=== PATIENT | female | born 1960 | race Caucasian/White ===

== ENCOUNTER → 2020-01-02 | Outpatient (CLI) | payer OTHER ==
[~2020-01-02] MED LIST: CHOL200018 PO; CYAN50TA PO; GABA-486 PO; IODI150T PO; NFBIOT1000 PO; OLIV250C PO; OXYC-199 PO; SKINNY FIBER PO; ZINC50TA49 PO
--- NOTE | 2020-01-02 13:15 | Diagnostic Imaging Report ---
INDICATION: Routine screening. Comparison is made with prior mammogram from 06/05/2015. 2-D and 3-D bilateral screening mammography was performed. The current study was also evaluated with a Computer Aided Detection (CAD) system. 3-D tomosynthesis was also performed and reviewed. FINDINGS: Scattered fibroglandular densities are identified bilaterally. There is a questionable area of architectural distortion in the upper central left breast. Additional views are recommended. There are benign calcifications bilaterally. No malignant-appearing microcalcifications are seen. Axillae are unremarkable. IMPRESSION: Questionable architectural distortion in the upper central left breast. Additional views are recommended. ACR BI-RADS Category 0: Incomplete. (Needs additional imaging evaluation). Result letter will be mailed to the patient. Note: At least 10% of breast cancer is not imaged by mammography. Dictated by: Dictated on workstation # [id number]
== END ==
LOC: RAD 10:42
PROVIDERS: ATTEND Nurse Practitioner Family
DX: Z12.31 Encounter for screening mammogram for malignant neoplasm of breast (principal)
CPT/HCPCS: 77067

== ENCOUNTER → 2020-01-22 | Outpatient (CLI) | payer OTHER ==
--- NOTE | 2020-01-22 13:49 | Diagnostic Imaging Report ---
INDICATION: Questionable architectural distortion in left breast. Patient presents for additional views. Comparison is made with recent screening study from 01/02/2020 as well as prior mammogram from 06/05/2015. 2-D and 3-D unilateral left diagnostic mammography was performed. This includes spot compression CC and ML views as well as conventional 90 degree lateral view. Reportedly the patient has had a prior left breast biopsy. The biopsy scar is in the upper left breast in the region of the area of architectural distortion. This may represent scarring. This area does appear somewhat similar to prior mammogram from 2014. No discrete mass is seen. There are benign calcifications at the biopsy site. No malignant appearing microcalcifications are seen. Left axilla is unremarkable. IMPRESSION: BI-RADS Category 0 There is an area of architectural distortion in the upper central left breast. Reportedly patient has had prior biopsy at this location with a benign result. This likely accounts for the density. Even so, directed sonographic interrogation of this area is recommended and will be performed today. ACR BI-RADS Category 0: Incomplete. (Needs additional imaging evaluation). Result letter will be mailed to the patient. Note: At least 10% of breast cancer is not imaged by mammography. Dictated by: Dictated on workstation # [id number]
--- NOTE | 2020-01-22 14:20 | Diagnostic Imaging Report ---
INDICATION: Left breast architectural distortion. Correlation is made with diagnostic mammogram performed earlier the same day as well as screening mammogram from 01/02/2020 and 06/05/2015. Sonographic interrogation of the upper left breast was performed. There is an area of scarring at the 12:00 location, 7 cm from the nipple. No discrete mass is seen. There is some heterogeneous hypoechogenicity at this location. IMPRESSION: BI-RADS Category 2 Findings suggestive of post surgical scarring at the 12:00 location of the left breast, likely accounting for the mammographic density. Patient may return to routine annual screening mammography. ACR BI-RADS Category 2: Benign findings. Result letter will be mailed to the patient. Note: At least 10% of breast cancer is not imaged by mammography. Dictated by: Dictated on workstation # [id number]
== END ==
LOC: RAD 12:48
PROVIDERS: ATTEND Nurse Practitioner Family
DX: N64.89 Other specified disorders of breast (principal); R92.8 Other abnormal and inconclusive findings on diagnostic imaging of breast
CPT/HCPCS: 76642